=== PATIENT | male | born 1940 | race Caucasian/White ===

== ENCOUNTER 2024-04-25 07:41 | Day surgery (SDC) | payer MEDICARE ==
[2024-04-23 12:23] LABS: BASOPHILS # (AUTO) 0.07 K/uL (0.00-0.20); BASOPHILS % (AUTO) 0.9 % (0.0-5.0); EOSINOPHILS # (AUTO) 0.18 K/uL (0.00-0.70); EOSINOPHILS % (AUTO) 2.4 % (0.0-8.0); HEMATOCRIT 44.8 % (42-54); IMMATURE GRANULOCYTE ABSOLUTE 0.02 K/uL (0-1); LYMPHOCYTES # (AUTO) 2.1 K/uL (1.0-4.8); LYMPHOCYTES % (AUTO) 28.4 % (21.0-51.0); MEAN CORPUSCULAR HEMOGLOBIN 32.5 pg (27.0-33.0); MEAN CORPUSCULAR HGB CONC 31.9 g/dL (32.0-36.0); MEAN CORPUSCULAR VOLUME 101.8 fL (79-99); MONOCYTES # (AUTO) 0.6 K/uL (0.1-1.0); NEUTROPHILS # (AUTO) 4.4 K/uL (1.8-7.7); PLATELET COUNT (AUTO) 215 K/uL (130-400); RED CELL DISTRIBUTION WIDTH 13.4 % (11.0-15.5); WHITE BLOOD COUNT (AUTO) 7.4 K/uL (4.8-10.8)
[2024-04-23 12:26] LABS: CREATININE 0.8 mg/dL (0.5-1.3); POTASSIUM 4.5 mmol/L (3.5-5.1)
[2024-04-23 12:42] VITALS: BP 151/78; PULSE 85; RESP 18; TEMP 98.4
--- NOTE | 2024-04-23 14:19 | EKG ---
[facility] Test Date: 2024-04-23 Test Time: 13:05:10 Pat Name: NINA BERNARD Department: [facility] Room: Gender: M Medical Detail Representative: [id number] : 1940 Requested By: ANSELMO HAUSER Order Number: [id number] Reading MD: Aleksander Patel Measurements Intervals [place] Rate: 80 P: 48 OK: 137 QRS: -69 QRSD: 136 T: 65 QT: 406 QTc: 462 Interpretive Statements Sinus rhythm Atrial premature complexes Nonspecific Intraventricular Conduction Delay Compared to ECG 02/13/2023 02:34:52 Left bundle-branch block now present Left anterior fascicular block no longer present Right bundle-branch block no longer present Electronically Signed On 04-24-2024 19:32:51 BACK PADDER by Aleksander Patel Please click the below link to view image of tracing.
--- NOTE | 2024-04-24 16:20 | NUR ---
RE: EKG REPORTED EKG RESULTS TO DR DUMONT, NO NEW ORDERS RECEIVED.
[~2024-04-25] VITALS: Ht 182.9 cm; Wt 103.9 kg
[2024-04-25] VITALS (12 sets, daily range): BP systolic 101–136; BP diastolic 58–82; PULSE 52–79; RESP 13–18; TEMP 96.9–98.3
[~2024-04-25 07:41] MED LIST: ALEN70TA80 PO; AMOX1TAB16 PO; ASCO500C18 PO; ASPI-1146 PO; CALC-1294 PO; DILT240C50 PO; FLUT1BLS8 IH; FOLI0.8C PO; MAGNESIUM GLYCONATE PO; MULT-1367 PO; OMEP-420 PO; TAMS-1 PO; VITAMIN B12 PO
[2024-04-25] MEDS ORDERED: ZOSYN 3.375GM+NS 50ML 50 ML ONE (08:41)
[2024-04-25] MEDS: LACTATED RINGERS 1000ML 1,000 ML IV ONE (09:12)
[2024-04-25] MEDS ORDERED: proPOFol 1000 MG/100 ML 100 ML IV ONE (10:59)
[2024-04-25] MEDS ORDERED: NEOSTIGMINE METHYLSULFATE 1MG/ML IV ONE (11:11)
[2024-04-25] MEDS ORDERED: dexaMETHasone SOD PHOSPHATE 10MG/ML 1ML VIAL ONE (11:11)
[2024-04-25] MEDS ORDERED: GLYCOPYRROLATE 0.2 MG/ML 5 ML VIAL ONE (11:11)
[2024-04-25] MEDS ORDERED: SUCCINYLCHOLINE CHLORIDE 20 MG/ML 10 ML VIAL ONE (11:11)
[2024-04-25] MEDS ORDERED: LIDOCAINE PF 100MG/5ML (2%) SYRINGE 5ML ONE ×2 (11:11→11:12)
[2024-04-25] MEDS ORDERED: rocuRONium bROMide 10MG/1ML 5ML VL ONE (11:12)
[2024-04-25] MEDS ORDERED: FENTanyl CITRate PF 50 MCG/1 ML 2ML VIAL ONE (11:12)
[2024-04-25] MEDS ORDERED: phenylEPHRINE HCL 10 MG/ML 1ML VIAL IV ONE (11:16)
[2024-04-25] MEDS: ZOSYN 3.375GM +NS 50ML IVPB ONE (11:32)
[2024-04-25] MEDS: BUPIvacaine/PF 0.25% 30ML VIAL IJ ONE (11:44)
[2024-04-25] MEDS: BACITRACIN 28.4 GM OINT TP ONE (11:45)
--- NOTE | 2024-04-25 12:55 | OP ---
DATE OF PROCEDURE: 04/25/2024 PREOPERATIVE DIAGNOSIS: Phimosis. POSTOPERATIVE DIAGNOSIS: Phimosis. PROCEDURE PERFORMED: Circumcision. ANESTHESIA: General endotracheal anesthesia. PREOPERATIVE INDICATIONS: This is an 83-year-old gentleman who has had a run of recurrent urinary tract infections. The patient has postvoid dribbling for chronic BPH and has had some cognitive changes. He is currently wearing adult diapers. He has redundant foreskin and with the postvoid dribbling, he is chronically moist in this area and he presents today for removal of redundant foreskin or circumcision. His most recent PSA was elevated to 6.5, however, the patient has had these chronic infections and we will repeat that when we know he is infection free. He has been on Augmentin 875 mg p.o. b.i.d. preoperatively and received Zosyn 3.375 grams intravenously at the beginning of the procedure. DESCRIPTION OF PROCEDURE: The patient was brought to the operating room and placed in the supine position. Following adequate general endotracheal anesthesia, he was sterilely draped and prepped in the usual fashion in the supine position. The penile foreskin was reduced and a good sterile prep was performed. Circumferential incision lines were drawn using a surgical marking pen and then a 15 blade knife was used to incise the redundant tissue. A cuff of redundant foreskin was elevated and removed using the Bovie electrocautery. Good hemostasis was achieved and circumferential incision lines were then reapproximated with interrupted stitches of 4-0 Monocryl. Local injection of a 50:50 mixture of 0.25% lidocaine and 0.5% Marcaine without epinephrine were then injected into the suture line. Bacitracin ointment was placed over the wound as were sterile gauzes and a Coban occlusive dressing. Prior to placing the dressing, the patient had in and out catheterization performed, which yielded 175 mL of clear yellow urine. The patient will be discharged home today with prescriptions for tramadol and Augmentin and is to follow up in the office in 10-14 days. His foreskin was sent to pathology for review. TID: [id number] RECEIPT: [id number]
== END 2024-04-25 13:36 | disposition home or self-care (01) ==
LOC: DAH 07:41
PROVIDERS: ATTEND Urology
DX: N47.1 Phimosis (principal); N39.0 Urinary tract infection, site not specified; I49.1 Atrial premature depolarization; N47.8 Other disorders of prepuce; N40.1 Benign prostatic hyperplasia with lower urinary tract symptoms; N39.43 Post-void dribbling; I10 Essential (primary) hypertension; J44.9 Chronic obstructive pulmonary disease, unspecified; Z87.891 Personal history of nicotine dependence; I25.10 Atherosclerotic heart disease of native coronary artery without angina pectoris; K21.9 Gastro-esophageal reflux disease without esophagitis; Z96.653 Presence of artificial knee joint, bilateral; Z79.899 Other long term (current) drug therapy
CPT/HCPCS: 80048; 85025; 36415; 93005; 54161; 88304; A6260; A4663; A4351; J7120; J3010; J3490 ×3; J1100; J0330; J0665; J2003 ×2; J2704; J2710; J2543 ×2; J2371; A4215; A4223; A4222; A4221; A4510; A4600